=== PATIENT | female | born 1965 | race Caucasian/White ===

== ENCOUNTER 2017-01-13 09:40 | Emergency (ER) | payer MEDICAID ==
[2017-01-13 13:44] LABS: BASOPHILS 0.4 % (0.0-2.0); HEMATOCRIT 41.7 % (36.0-48.0); HEMOGLOBIN 13.8 g/dL (12-16); IMMATURE GRANULOCYTES 0.3 % (0-5); LYMPHOCYTES 20.7 % (15-50); MCH 32.2 pg (26.0-34.0); MCHC 33.1 g/dL (31.0-37.0); MCV 97.4 fL (80.0-100.0); MEAN PLATELET VOLUME 9.8 fL (7.4-10.4); MONOCYTES 8.9 % (2-11); NEUTROPHILS 66.7 % (40-80); RBC 4.28 10x6/uL (4.00-5.40); RDW 13.8 % (11.5-14.5); WBC 11.7 10x3/uL (4.8-10.8)
[2017-01-13 13:46] LABS: PLATELET COUNT 198 10x3/uL (130-400)
== END 2017-01-13 14:04 | disposition home or self-care (01) ==
LOC: D.ER 09:40
PROVIDERS: Physician Assistant
DX: L03.113 Cellulitis of right upper limb (principal); R40.0 Somnolence; I10 Essential (primary) hypertension

== ENCOUNTER 2017-08-21 15:42 | Emergency (ER) | payer MEDICAID | END 2017-08-21 17:40 | disposition home or self-care (01) | LOC: D.ER 15:42 | DX: L02.511 Cutaneous abscess of right hand (principal); F17.200 Nicotine dependence, unspecified, uncomplicated ==

== ENCOUNTER 2018-03-23 15:48 | Emergency (ER) | payer MEDICAID | END 2018-03-23 17:22 | disposition home or self-care (01) | LOC: D.ER 15:48 | DX: L25.9 Unspecified contact dermatitis, unspecified cause (principal); L03.811 Cellulitis of head [any part, except face]; I10 Essential (primary) hypertension; F17.200 Nicotine dependence, unspecified, uncomplicated ==

== ENCOUNTER 2018-07-26 18:03 | Emergency (ER) | payer MEDICAID ==
[~2018-07-26] VITALS: Ht 167.6 cm; Wt 54.5 kg
[2018-07-26 18:22] VITALS: Ht 167.6 cm; Wt 54.5 kg
[2018-07-26] MEDS ORDERED: TOPROL XL25 MG PO (18:24)
[2018-07-26] MEDS ORDERED: PAXIL40 MG PO (18:25)
[2018-07-26] MEDS ORDERED: BACTROBAN NASAL1 GM NASAL (20:05)
[2018-07-26 20:27] VITALS: BP 164/88
== END 2018-07-26 20:27 | disposition home or self-care (01) ==
LOC: D.ER 18:03
DX: J34.0 Abscess, furuncle and carbuncle of nose (principal); Z76.0 Encounter for issue of repeat prescription; I10 Essential (primary) hypertension; F17.200 Nicotine dependence, unspecified, uncomplicated

== ENCOUNTER 2019-01-14 18:46 | Emergency (ER) | payer MEDICAID ==
[~2019-01-14] VITALS: Ht 167.6 cm; Wt 54.5 kg
[~2019-01-14 18:46] MED LIST: BACTROBAN NASAL1 GM NASAL; PAXIL40 MG PO; TOPROL XL25 MG PO
[2019-01-14 18:48] VITALS: BP 129/81; Ht 167.6 cm; Wt 54.5 kg
== END 2019-01-14 20:20 | disposition left against medical advice (07) ==
LOC: D.ER 18:46
DX: M79.672 Pain in left foot (principal); M79.671 Pain in right foot